=== PATIENT | male | born 1965 | race Caucasian/White ===

== ENCOUNTER 2025-01-27 15:45 | Emergency (ER) | payer MEDICAID ==
[~2025-01-27] VITALS: Ht 180.3 cm; Wt 81.4 kg
[2025-01-27 16:15] VITALS: BP 128/97; PULSE 106; RESP 16; TEMP 98; O2SAT 95
== END 2025-01-27 17:25 | disposition home or self-care (01) ==
LOC: ER 15:47
DX: T16.1XXA Foreign body in right ear, initial encounter (principal); W44.G1XA Audio device entering into or through a natural orifice, initial encounter; Y93.89 Activity, other specified; Y92.89 Other specified places as the place of occurrence of the external cause; Y99.8 Other external cause status
CPT/HCPCS: 99284